=== PATIENT | male | born 1955 | race Two or more races ===

== ENCOUNTER 2017-02-26 07:31 | Outpatient (CLI) | payer BC ==
--- NOTE | 2017-02-26 11:18 | Diagnostic Imaging Report ---
Indication: Abdominal pain. History of bladder calculi. History of recurrent urinary tract infections Technique: Patient ingested oral contrast. Precontrast spiral acquisitions obtained or the abdomen and pelvis. IV administration nonionic contrast. Multiphasic spiral acquisitions obtained through the abdomen and pelvis Multiplanar reconstructions were generated. Total dose length product 2167 mGycm. CTDIvol(s) 11, 8, 121, 11, 11, 11 mGy. Radiation dose was minimized using automated exposure control Comparison: None Findings: 2 calculi are seen within the bladder. The largest is located centrally, measures 2.2 cm long axis dimension. The second is located dependently on the left, measures 1.4 cm long axis dimension. The bladder wall is thickened. The prostate is enlarged, measures 4.3 cm transverse by 3.8 cm AP by 4.2 cm craniocaudad. It demonstrates multiple calcifications. No renal or ureteral calculi are demonstrated. No evidence of hydronephrosis or hydroureter. The right kidney demonstrates a 13 mm cyst. Both kidneys demonstrate subcentimeter low-attenuation lesions which are too small to characterize. The renal collecting systems and ureters are unremarkable. The kidneys enhance normally. The liver demonstrates an area of uniform low attenuation on the precontrast images in segment 6 which measures 2.4 cm in diameter. On the venous phase images, there is suggestion of some peripheral nodular enhancement and on the delayed phase images there is increased although not complete filling in of the lesion with contrast. The arterial phase images demonstrate a focal area of enhancement in segment 2, not evident on other phases. The gallbladder, bile ducts, pancreas, spleen, adrenals are all unremarkable. No mesenteric or retroperitoneal mass or adenopathy. No pelvic mass or adenopathy. Normal appendix. No evidence of diverticulosis or diverticulitis. Moderate amount of retained fecal material noted. No small bowel distention or small bowel wall thickening. Contrast is seen throughout the entirety of the small bowel. Bowel loops are seen adjacent to the orifices of the inguinal canals bilaterally, but no ankur herniation demonstrated The included lung bases are clear. The bones are unremarkable. Impression: 2 bladder calculi, largest measuring 2.2 cm diameter, the second measuring 1.4 cm diameter Bladder wall thickening. This may indicate cystitis or the on the basis of chronic bladder outlet obstruction Prostatomegaly 2.4 cm right lobe liver lesion, as described. Enhancement pattern is highly suggestive of but not conclusive for a benign hemangioma. Consider further evaluation with ultrasound or liver specific MRI to confirm Right renal cyst. Subcentimeter low-attenuation bilateral renal lesions, too small to characterize, most likely benign simple cyst. No further evaluation necessary The CT scanner at [facility] is accredited by the [employer] and the scans are performed using protocols designed to limit radiation exposure to as low as reasonably achievable to attain images of sufficient resolution adequate for diagnostic evaluation.
== END 2017-02-26 09:31 | disposition home or self-care (01) ==
LOC: CAT 07:31
DX: N21.0 Calculus in bladder (principal); N40.1 Benign prostatic hyperplasia with lower urinary tract symptoms; N28.1 Cyst of kidney, acquired
CPT/HCPCS: 74178; Q9967